=== PATIENT | female | born 1970 | race Two or more races ===

== ENCOUNTER 2023-10-24 09:07 | Emergency (ER) | payer OTHER ==
[~2023-10-24] VITALS: Ht 162.6 cm; Wt 61.2 kg
[2023-10-24] MEDS ORDERED: DEXAMETHASONE SODIUM PHOSPHATE 4 MG/ML VIAL IM ONE (10:45)
[2023-10-24] MEDS ORDERED: ACETAMINOPHEN 500 MG GEL..CAP PO ONE (10:45)
[2023-10-24 11:16] LABS: HEMATOCRIT 40.4 % (36.0-45.00); HEMOGLOBIN 14.1 g/dL (12.0-15.00); MEAN CELL VOLUME 92.5 fL (80.00-100.00); MEAN CORPUSCULAR HEMOGLOBIN 32.2 pg (27.00-32.0); MEAN CORPUSCULAR HGB CONC 34.8 g/dl (32.0-36.0); PLATELET COUNT 185 K/uL (150-450); RED BLOOD COUNT 4.37 M/uL (4.00-6.00); RED CELL DISTRIBUTION WIDTH 13.2 % (11.5-14.5)
[2023-10-24 11:23] LABS: URINE APPEARANCE Clear; URINE BILIRRUBIN Negative (NEGATIVE); URINE BLOOD Negative; URINE COLOR Dark Yellow; URINE GLUCOSE Negative (NEGATIVE); URINE LEUKOCYTE Negative; URINE NITRATE Negative; URINE PROTEIN Trace (NEGATIVE)
[2023-10-24 11:24] LABS: URINE BACTERIA 263.3 uL (0.0-1933); URINE EPITHELIAL CELLS 25.4 uL (0.0-38.8); URINE RBC 2.5 uL (0.0-20.8); URINE WBC 3.7 uL (0.0-23.2)
[2023-10-24] MEDS ORDERED: AMOX-CLAV 875-1 EAC1 PO (11:42)
[2023-10-24] MEDS ORDERED: AMOX-CLAV 875-1 EAC1 (11:48)
[2023-10-24] MEDS ORDERED: INTESTINEX680 M1 PO (12:05)
== END 2023-10-24 12:08 | disposition home or self-care (01) ==
LOC: ER 09:08
PROVIDERS: General Practice
DX: H92.02 Otalgia, left ear (principal); Z20.822 Contact with and (suspected) exposure to COVID-19